=== PATIENT | male | born 1980 | race Caucasian/White ===

== ENCOUNTER → 2022-11-25 13:46 | Outpatient (CLI) | payer OTHER, SELFPAY ==
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
== END ==
DX: S00.85XA Superficial foreign body of other part of head, initial encounter (principal); X58.XXXA Exposure to other specified factors, initial encounter
CPT/HCPCS: 70150